=== PATIENT | female | born 1935 | race African-American/Black ===

== ENCOUNTER 2018-06-27 00:57 | Inpatient (IN) | payer MEDICARE ==
[~2018-06-27] VITALS: Ht 160 cm; Wt 81.6 kg
[2018-06-27] MEDS ORDERED: PROTONIX40 MG PO (01:02)
[2018-06-27] MEDS ORDERED: TAPAZOLE 5 MG TA5 MG PO (01:02)
[2018-06-27] MEDS ORDERED: LANTUS INSULIN10 ML SC (01:02)
[2018-06-27] MEDS ORDERED: PRAVACHOL20 MG PO (01:02)
[2018-06-27] MEDS ORDERED: ELIQUIS5 MG PO (01:02)
[2018-06-27] MEDS ORDERED: APAP325 MG PO (01:03)
[2018-06-27] MEDS ORDERED: ULTRAM50 MG PO (01:03)
[2018-06-27] MEDS ORDERED: NEURONTIN 300300 MG PO (01:03)
[2018-06-27] MEDS ORDERED: VITAMIN D31000 UNIT PO (01:04)
[2018-06-27] MEDS ORDERED: BAYER CHEWABLE81 MG PO (01:04)
[2018-06-27] MEDS ORDERED: MIRALAX17 GM PO (01:04)
[2018-06-27] MEDS ORDERED: CLARITIN 10 MG10 MG PO (01:04)
[2018-06-27] MEDS ORDERED: FERROUS SULFAT325 MG PO (01:05)
[2018-06-27 01:46] LABS: BASOPHILS 0 % (0-2); EOSINOPHILS 1.1 % (0-7); HEMATOCRIT 35.2 % (36.0-48.0); HEMOGLOBIN 11.2 g/dL (12-16); IMMATURE GRANULOCYTES 0.3 % (0-5); LYMPHOCYTES 42.2 % (15-50); MCH 25.9 pg (26.0-34.0); MCHC 31.8 g/dL (31.0-37.0); MCV 81.3 fL (80.0-100.0); MEAN PLATELET VOLUME 11.6 fL (7.4-10.4); MONOCYTES 7.9 % (2-11); NEUTROPHILS 48.5 % (40-80); PLATELET COUNT 153 10x3/uL (130-400); RBC 4.33 10x6/uL (4.00-5.40); RDW 15.7 % (11.5-14.5); WBC 6.2 10x3/uL (4.8-10.8)
--- NOTE | 2018-06-27 03:20 | NUR ---
report received from JAMES COCHRAN RN. PT ARRIVED TO FLOOR BY BED. INTRODUCED SELF TO PT. VITALS STABLE. NO S/S OF DISTRESS NOTED. CALL LIGHT IN REACH. BED IN LOW POSITION. D5-LR INFUSING ORDERED THROUGH RIGHT WRIST PIV. WILL CTM.
[2018-06-27 03:33] VITALS: BP 159/69
[2018-06-27 05:04] VITALS: BP 159/69
[2018-06-27 08:04] VITALS: BP 190/94
--- NOTE | 2018-06-27 09:17 | NUR ---
MORNING ASSESSMENT COMPLETE. SEE ASSESSMENT FLOWSHEET FOR FURTHER DETAILS. PT LYING IN BED AAO X4 TO PERSON, PLACE, TIME, AND SIUTATION. DENIES NEEDS AT THIS TIME. CL IN REACH. SIDE RAILS UP X3 FOR PT SAEFTY. BED IN LOWEST POSITION.
[2018-06-27 12:57] VITALS: BP 180/88
[2018-06-27 16:19] VITALS: BP 159/81
--- NOTE | 2018-06-27 17:30 | NUR ---
PT SITTING UP IN CHAIR. DENIES NEEDS AT THIS TIME. NO SIGNS OF DISTRESS NOTED.
[2018-06-27 20:00] VITALS: BP 162/79
--- NOTE | 2018-06-27 20:00 | NUR ---
ALERT AND ORIENTED. HARD OF HEARING. RIGHT WRIST IV INFUSING D5 LR @ 50. COMPLAINS OF DIARRHEA EXPLAINED TO PATIENT THAT STOOL SAMPLE IS NEEDED. VERBALIZES UNDERSTANDING. DENIES PAIN. CALL LIGHT IN HAND. VERBALIZES HOW TO USE.
[2018-06-28] VITALS: BP 162/86
--- NOTE | 2018-06-28 01:38 | NUR ---
I have reviewed this patient and I concur with the Shift Assessment completed by the Licensed Practical Nurse today this shift.
[2018-06-28 04:00] VITALS: BP 172/78
[2018-06-28 06:03] LABS: BASOPHILS 0.2 % (0-2); EOSINOPHILS 0.9 % (0-7); HEMATOCRIT 33.9 % (36.0-48.0); IMMATURE GRANULOCYTES 0.2 % (0-5); LYMPHOCYTES 38.2 % (15-50); MCH 26.1 pg (26.0-34.0); MCHC 32.4 g/dL (31.0-37.0); MCV 80.3 fL (80.0-100.0); MEAN PLATELET VOLUME 12.2 fL (7.4-10.4); MONOCYTES 9.6 % (2-11); NEUTROPHILS 50.9 % (40-80); PLATELET COUNT 159 10x3/uL (130-400); RBC 4.22 10x6/uL (4.00-5.40); RDW 15.4 % (11.5-14.5); WBC 5.9 10x3/uL (4.8-10.8)
--- NOTE | 2018-06-28 07:48 | NUR ---
MORNING ASSESSMENT COMPLETE. PT LYING IN BED AAO X4 TO PERSON, PLACE, TIME, AND SITUATION. DENIES NEEDS AT THIS TIME. CL IN REACH. SIDE RAILS UP X3 FOR PT SAEFTY. BED IN LOWEST POSITION. CLEAR LIQUID DIET ACTIVE OF THIS AM.
[2018-06-28 07:56] VITALS: BP 170/82
[2018-06-28 12:06] VITALS: BP 145/85
[2018-06-28 15:56] VITALS: BP 169/81
[2018-06-28 17:14] LABS: ANION GAP 11.7 mmol/L (8-16); CALCIUM 8.7 mg/dL (8.5-10.1); CARBON DIOXIDE 27.3 mmol/L (21.0-32.0); CREATININE - SERUM 0.8 mg/dL (0.6-1.3)
--- NOTE | 2018-06-28 19:22 | NUR ---
GREETED PATIENT AND INTRODUCED MYSELF HER NURSE. PATIENT LAYING IN BED IN SUPINE POSITION. VISITORS AT BEDSIDE. DENIES ANY NEEDS AT THIS TIME. CALL LIGHT IN REACH.
--- NOTE | 2018-06-28 22:06 | NUR ---
CLEANED UP PATIENT OF INCONTINENT BM. COMPLETE BED LINEN CHANGED. DC PATIENTS PERIPHERAL IV. PATIENT HAD PULLED OUT WHILE TRING TO ATTEMPT TO GET OUT OF BED.
--- NOTE | 2018-06-28 23:03 | NUR ---
2 UNSUCCESSFUL ATTEMPTS TO RESTART IV. CALLED [facility] FOR ASSISTANCE TO SEE IF NURSE COULD START PERIPHERAL IV.
--- NOTE | 2018-06-28 23:15 | NUR ---
PATIENT CLEANED OF INCONTINENT BM. COMPLETE LINEN CHANGE.
--- NOTE | 2018-06-28 23:35 | NUR ---
2 FAILED ATTEMPTS BY MED SURGICAL NURSE TO START PERIPHERAL IV. WILL TRY AND CALL ER FOR ASSISTANCE.
--- NOTE | 2018-06-28 23:37 | NUR ---
CONTACTED MAN IN ER TO SEE IF THEY HAD A NURSE THAT COULD TRY TO START IV. MAN STATED THAT TWO NURSES WHERE ON BREAK AND THEY WOULD SEND SOMEONE SOON THEY COULD.
[2018-06-29] VITALS: BP 152/56
--- NOTE | 2018-06-29 00:10 | NUR ---
ER NURSE MAN ATTEMPTING TO START PERIPHERAL IV. HAS ALREADY HAD 2 FAILED ATTEMPTS.
--- NOTE | 2018-06-29 00:30 | NUR ---
MAN FROM VASCULAR ACCESS ATTEMPTED MIDLINE ON LEFT UPPER ARM WITHOUT SUCCESS. WILL PUT IN A ORDER FOR VASCULAR CONSULT.
--- NOTE | 2018-06-29 01:30 | NUR ---
CALLED TELEMETRY AND HAD PATIENT PUT ON WAITING LIST FOR MONITOR,
--- NOTE | 2018-06-29 01:39 | NUR ---
PATIENT CLEANED OF INCONTINENT BM. COMPLETE BED LINEN CHANGE.
--- NOTE | 2018-06-29 03:24 | NUR ---
PATIENT RESTING QUIETLY WITH EYES CLOSED LAYING IN SUPINE POSITION. HOB AT 30 DEGREES. RESPIRATIONS EVEN. NO S/S OF DISTRESS. SR UP X 2. BED IN LOWEST POSITION. CALL LIGHT IN REACH.
[2018-06-29 04:00] VITALS: BP 163/74
--- NOTE | 2018-06-29 06:18 | NUR ---
CONTACTED GI LAB TO INFORM THEM THAT PATIENT DOES NOT HAVE IV ACCESS.
--- NOTE | 2018-06-29 06:20 | NUR ---
CONTACTED DR. ALY FOR FURTHER INSTRUCTIONS CONCERNING IV ACCESS. DR. ALY INSTRUCTED TO HAVE A PICC LINE PLACED.
[2018-06-29 06:33] LABS: BASOPHILS 0.2 % (0-2); EOSINOPHILS 1.2 % (0-7); HEMATOCRIT 35.8 % (36.0-48.0); HEMOGLOBIN 11.6 g/dL (12-16); IMMATURE GRANULOCYTES 0.2 % (0-5); LYMPHOCYTES 35.3 % (15-50); MCH 26.1 pg (26.0-34.0); MCHC 32.4 g/dL (31.0-37.0); MCV 80.4 fL (80.0-100.0); MEAN PLATELET VOLUME 12.2 fL (7.4-10.4); MONOCYTES 9.8 % (2-11); NEUTROPHILS 53.3 % (40-80); PLATELET COUNT 160 10x3/uL (130-400); RBC 4.45 10x6/uL (4.00-5.40); RDW 15.5 % (11.5-14.5); WBC 5.8 10x3/uL (4.8-10.8)
[2018-06-29 06:41] LABS: ALBUMIN 3.1 g/dL (3.4-5.0); ALKALINE PHOSPHATASE 85 U/L (46-116); ALT (SGPT) 35 U/L (10-68); BILIRUBIN - TOTAL 0.35 mg/dL (0.2-1.3); CALC OSMOLALITY 279 mosm/kg (275-300); CALCIUM 8.4 mg/dL (8.5-10.1); CARBON DIOXIDE 27.9 mmol/L (21.0-32.0); CHLORIDE - SERUM 105 mmol/L (98-107); CREATININE - SERUM 0.7 mg/dL (0.6-1.3); POTASSIUM - SERUM 3.8 mmol/L (3.5-5.1); PROTEIN - SERUM 6.5 g/dL (6.4-8.2); SODIUM 140 mmol/L (136-145); UREA NITROGEN 11 mg/dL (7-18); eGFR NON AFRICAN AMERICAN 85 mL/min (90-120)
[2018-06-29 06:43] LABS: GLUCOSE 139 mg/dL (74-106)
[2018-06-29 07:26] VITALS: BP 160/76
--- NOTE | 2018-06-29 07:30 | NUR ---
A/A/OX4. REMAINS NPO FOR COLONOSCOPY THIS AM. PT IS AWARE OF THIS AND VERBALIZES UNDERSTANDING. DENIES ANY PAIN OR DISCOMFORT AT PRESENT TIME AND VOICES NO REQUESTS. ASSESSMENT COMPLETED. WILL CONTINUE POC.
--- NOTE | 2018-06-29 08:53 | MORECARE ---
CASE MANAGEMENT DISCHARGE SUMMARY PATIENT: DIONY LAURENT UNIT: [id number] ADM DATE: 06/27/18 AGE: 83 : 36 SEX: F ROOM/BED: D.1211 AUTHOR: CHRISTOPHER MARKS PHYSICIAN: REFERRING PHYSICIAN: KESHAWN SHEEHAN MD DATE OF SERVICE: 06/29/18 Discharge Plan Patient Name: DIONY LAURENT [facility] [facility] 1935 Planned Disposition: Home Anticipated Discharge Date: Discharge Date: Expected LOS: Initial Reviewer: MEGAN Initial Review Date: 06/29/2018 Generated: 06/29/18 9:53 am DCPIA - Discharge Planning Initial Assessment Updated by MEGAN: Ann-Marie Clemons on 06/29/18 8:52 am * Is the patient Alert and Oriented? Yes * How many steps to enter\exit or inside your home? * PCP REYNA * Pharmacy [facility] [address] * Preadmission Environment Home with Family * ADLs Independent * Equipment Walker * List name and contact numbers for known caregivers / representatives who currently or will assist patient after discharge: MARGARITA MARIANO [phone] * Verbal permission to speak to the caregivers and representatives has been obtained from the patient. Yes * Community resources currently utilized None * Additional services required to return to the preadmission environment? No * Can the patient safely return to the preadmission environment? Yes * Has this patient been hospitalized within the prior 30 days at any hospital? No Patient Name: DIONY LAURENT Page [id number] at 0853 All edits/amendments must be made on the electronic document DICTATION DATE: 06/29/18851 PHARMACY INFORMATICS SPECIALIST: BOZENA 06/29/18851 RPT#: [id number] DC DATE: STATUS: ADM IN [facility] [address] [place] [address] END OF REPORT
--- NOTE | 2018-06-29 08:59 | MORECARE ---
CASE MANAGEMENT DISCHARGE SUMMARY PATIENT: DIONY LAURENT UNIT: [id number] ADM DATE: 06/27/18 AGE: 83 : 36 SEX: F ROOM/BED: D.1211 AUTHOR: KENDRICK,DOC PHYSICIAN: REFERRING PHYSICIAN: KESHAWN SHEEHAN MD DATE OF SERVICE: 06/29/18 Discharge Plan Patient Name: DIONY LAURENT Facility: [facility]:[place] : 1935 Planned Disposition: Home Anticipated Discharge Date: Discharge Date: Expected LOS: Initial Reviewer: [email or web address] Initial Review Date: 06/29/2018 Generated: 06/29/18 9:59 am Comments DCP- Discharge Planning Updated by [id number]: Ann-Marie Clemons on 06/29/18 7:[address] Patient Name: DIONY LUARENT Admission Status: ER Accout number: [id number] Admission Date: 06-27-2018 : 1935 Admission Diagnosis: Attending: LUCY SHEEHAN Current LOS: 2 Anticipated DC Date: Planned Disposition: Home Primary Insurance: MEDICARE A & B Discharge Planning Comments: CM MEET WITH PT AFTER GETTING VERBAL CONSENT TO CONTINUE WITH INITAL ASSESSMENT AND DISCHARGE NEEDS. CM EDUCATED ON ROLE OF CM AND THE SERVICES AVALIABLE SUCH HH, REHAB AND DME SERVICES. PT LIVES AT HOME ALONE BUT CURRENTLY LIVING AT DAUGHTERS HOME AND DAUGHTER IS A NURSE. . SHE HAS A WALKER AT HOME. DENIES ANY CM NEEDS AT THIS TIME. CM WILL CONTINUE TO FOLLOW. Tufter Hand: Ann-Marie Clemons DCPIA - Discharge Planning Initial Assessment Updated by [id number]: Ann-Marie Clemons on 06/29/18 8:52 am * Is the patient Alert and Oriented? Yes * How many steps to enter\exit or inside your home? * PCP SLAY * Pharmacy [facility] [address] * Preadmission Environment Home with Family * ADLs Independent * Equipment Walker * List name and contact numbers for known caregivers / representatives who currently or will assist patient after discharge: MARGARITA MARIANO [phone] * Verbal permission to speak to the caregivers and representatives has been obtained from the patient. Yes * Community resources currently utilized None * Additional services required to return to the preadmission environment? No * Can the patient safely return to the preadmission environment? Yes * Has this patient been hospitalized within the prior 30 days at any hospital? No Last DP export: 06/29/18 7:53 a Patient Name: DIONY LAURENT Page 53612 at 0859 All edits/amendments must be made on the electronic document DICTATION DATE: 06/29/18858 BAND MAKER: BOZENA 06/29/1859 RPT#: [id number] DC DATE: STATUS: ADM IN [facility] [address] [place] [address] END OF REPORT
--- NOTE | 2018-06-29 09:00 | NUR ---
VASCULAR NURSE HERE AND INSERTED SINGLE LUMEN MIDLINE TO RIGHT UPPER ARM. PT TOLERATED WELL. GI LAB NOTIFIED PT NOW HAS IV IN PLACE.
[2018-06-29 09:41] VITALS: Ht 160 cm; Wt 81.6 kg
--- NOTE | 2018-06-29 10:15 | NUR ---
TO GI LAB VIA BED.
--- NOTE | 2018-06-29 11:40 | NUR ---
RETURNED TO ROOM VIA BED. A/A/OX4 WITH NO COMPLAINTS.
[2018-06-29 12:39] VITALS: BP 150/61
[2018-06-29 16:33] VITALS: BP 141/60
--- NOTE | 2018-06-29 19:30 | NUR ---
FAMILY MEMBER AT BEDSIDE GETTING READY TO TAKE PATIENT HOME.
--- NOTE | 2018-06-29 19:56 | NUR ---
PATIENTS MIDLINE DC'D BY CHARGE NURSE, RN.
--- NOTE | 2018-06-29 20:01 | NUR ---
PATIENT IN WHEELCHAIR AND GETTING READY TO DISCHARGE HOME WITH FAMILY MEMBER. WHEELED TO PERSONAL VEHICLE.
--- NOTE | 2018-06-30 11:40 | MORECARE ---
CASE MANAGEMENT DISCHARGE SUMMARY PATIENT: DIONY LAURENT UNIT: [id number] ADM DATE: 06/27/18 AGE: 83 : 36 SEX: F ROOM/BED: D.1211 AUTHOR: KENDRICK,DOC PHYSICIAN: REFERRING PHYSICIAN: KESHAWN SHEEHAN MD DATE OF SERVICE: 06/30/18 Discharge Plan Patient Name: DIONY LAURENT Facility: [facility]:[place] : 1935 Planned Disposition: Home Anticipated Discharge Date: Discharge Date: 06/29/2018 Expected LOS: Initial Reviewer: [email or web address] Initial Review Date: 06/29/2018 Generated: 06/30/18 12:40 pm Comments DCP- Discharge Planning Updated by [id number]: Ann-Marie Clemons on 06/29/18 7:[address] Patient Name: DIONY LAURENT Admission Status: ER Accout number: [id number] Admission Date: 06-27-2018 : 1935 Admission Diagnosis: Attending: LUCY SHEEHAN Current LOS: 2 Anticipated DC Date: Planned Disposition: Home Primary Insurance: MEDICARE A & B Discharge Planning Comments: CM MEET WITH PT AFTER GETTING VERBAL CONSENT TO CONTINUE WITH INITAL ASSESSMENT AND DISCHARGE NEEDS. CM EDUCATED ON ROLE OF CM AND THE SERVICES AVALIABLE SUCH HH, REHAB AND DME SERVICES. PT LIVES AT HOME ALONE BUT CURRENTLY LIVING AT DAUGHTERS HOME AND DAUGHTER IS A NURSE. . SHE HAS A WALKER AT HOME. DENIES ANY CM NEEDS AT THIS TIME. CM WILL CONTINUE TO FOLLOW. Network Analyst: Ann-Marie Clemons DCPIA - Discharge Planning Initial Assessment Updated by [email or web address]: Ann-Marie Clemons on 06/29/18 8:52 am * Is the patient Alert and Oriented? Yes * How many steps to enter\exit or inside your home? * PCP KANDISY * Pharmacy [facility] [address] * Preadmission Environment Home with Family * ADLs Independent * Equipment Walker * List name and contact numbers for known caregivers / representatives who currently or will assist patient after discharge: MARGARITA MARIANO [phone] * Verbal permission to speak to the caregivers and representatives has been obtained from the patient. Yes * Community resources currently utilized None * Additional services required to return to the preadmission environment? No * Can the patient safely return to the preadmission environment? Yes * Has this patient been hospitalized within the prior 30 days at any hospital? No Coverage Notice Reviewer: [email or web address] Roxane Clemons Notice Issued Date-Time: 06/29/2018 15:45 Notice Type: IM Discharge Notice Notice Delivered To: Patient Relationship to Patient: Self [employer] Name: Delivery Method: HAND - Hand Delivered [place] Days: Prior Verbal Notification: Recipient Understood Notice: Yes Recipient Signature: Yes Med Rec Note Co-signed by Attending: Coverage Notice Comment: Last DP export: 06/29/18 7:59 a Patient Name: DIONY LAURENT Page 28761 at 1140 All edits/amendments must be made on the electronic document DICTATION DATE: 06/30/181138 BIOLOGIST: BOZENA 06/30/18 1139 RPT#: [id number] DC DATE:06/29/18 STATUS: DIS IN [facility] [address] [place] [address] END OF REPORT
== END 2018-06-29 20:08 | disposition home or self-care (01) | DRG 393 ==
LOC: D.ER 00:57 → D.M3 01:33
PROVIDERS: Emergency Medicine; Internal Medicine Gastroenterology; Internal Medicine Nephrology; ADMIT Emergency Medicine; ATTEND Emergency Medicine
PROC: B54NZZA Ultrasonography of Left Upper Extremity Veins, Guidance (ICD-10-PCS; 2018-06-29)
PROC: 05HB33Z Insertion of Infusion Device into Right Basilic Vein, Percutaneous Approach (ICD-10-PCS; 2018-06-29)
PROC: B54MZZA Ultrasonography of Right Upper Extremity Veins, Guidance (ICD-10-PCS; 2018-06-29)
PROC: 0DBK8ZZ Excision of Ascending Colon, Via Natural or Artificial Opening Endoscopic (ICD-10-PCS; 2018-06-29)
PROC: 0DBN8ZZ Excision of Sigmoid Colon, Via Natural or Artificial Opening Endoscopic (ICD-10-PCS; 2018-06-29)
PROC: 0DBM8ZZ Excision of Descending Colon, Via Natural or Artificial Opening Endoscopic (ICD-10-PCS; 2018-06-29)
PROC: 05HC33Z Insertion of Infusion Device into Left Basilic Vein, Percutaneous Approach (ICD-10-PCS; principal; 2018-06-29 13:00)
DX: K63.5 Polyp of colon (principal); K57.91 Diverticulosis of intestine, part unspecified, without perforation or abscess with bleeding; I48.91 Unspecified atrial fibrillation; E11.9 Type 2 diabetes mellitus without complications; I10 Essential (primary) hypertension; K64.8 Other hemorrhoids